=== PATIENT | female | born 2000 | race Caucasian/White ===

== ENCOUNTER → 2020-08-05 | Outpatient (CLI) | payer OTHER ==
[2020-08-05 11:12] LABS: BUN/CREATININE RATIO 10 (0-10)
[2020-08-06 08:13] LABS: VITAMIN D, 25-HYDROXY 18.1 ng/mL (30.0-100.0)
[2020-08-06 09:13] LABS: THYROXINE (T4) 6.2 ug/dL (4.5-12.0)
== END ==
LOC: LAB 10:15
PROVIDERS: Nurse Practitioner Family
DX: F43.10 Post-traumatic stress disorder, unspecified (principal); E55.9 Vitamin D deficiency, unspecified; E78.5 Hyperlipidemia, unspecified; F32.9 Major depressive disorder, single episode, unspecified
CPT/HCPCS: 36415; 80053; 80061; 84436; 84443; 84480

== ENCOUNTER → 2020-12-24 | Outpatient (CLI) | payer OTHER ==
[2020-12-24 11:21] LABS: HEMOGLOBIN 13.5 gm/dl (12.3-15.3); RED BLOOD COUNT 4.71 M/UL (4.00-5.10); WHITE BLOOD COUNT 7.8 K/UL (4.5-11.0)
[2020-12-24 11:50] LABS: BUN/CREATININE RATIO 19 (0-10)
[2020-12-25 08:15] LABS: VITAMIN D, 25-HYDROXY 17.9 ng/mL (30.0-100.0)
[2020-12-25 11:15] LABS: THYROXINE (T4) 6.7 ug/dL (4.5-12.0)
== END ==
LOC: LAB 10:16
PROVIDERS: Nurse Practitioner Family
DX: E55.9 Vitamin D deficiency, unspecified (principal); R53.83 Other fatigue
CPT/HCPCS: 36415; 80053; 80061; 84436; 84443; 84480; 85025

== ENCOUNTER 2021-07-28 21:55 | Emergency (ER) | payer OTHER ==
[2021-07-29 00:47] LABS: HEMOGLOBIN 12.9 gm/dl (12.3-15.3); RED BLOOD COUNT 4.43 M/UL (4.00-5.10); WHITE BLOOD COUNT 11.5 K/UL (4.5-11.0)
[2021-07-29 01:16] LABS: BUN/CREATININE RATIO 11 (0-10)
== END 2021-07-29 02:23 | disposition home or self-care (01) ==
LOC: ER1 21:55
PROVIDERS: Physician Assistant
DX: O26.851 Spotting complicating pregnancy, first trimester (principal); O99.331 Smoking (tobacco) complicating pregnancy, first trimester; F17.210 Nicotine dependence, cigarettes, uncomplicated; Z88.0 Allergy status to penicillin; Z3A.13 13 weeks gestation of pregnancy
CPT/HCPCS: 80053; 81001; 85025; 86850; 86900; 86901; 87086; 99284